=== PATIENT | female | born 1960 | race Caucasian/White ===

== ENCOUNTER 2018-05-30 19:47 | Emergency (ER) | payer OTHER | END 2018-05-31 02:50 | disposition home or self-care (01) | LOC: FTE 19:47 | DX: S62.101A Fracture of unspecified carpal bone, right wrist, initial encounter for closed fracture (principal); X58.XXXA Exposure to other specified factors, initial encounter; Y92.9 Unspecified place or not applicable | CPT/HCPCS: 73110; 73110-RT; 99283-25 ==